=== PATIENT | female | born 1975 | race African-American/Black ===

== ENCOUNTER → 2016-08-25 | Day surgery (SDC) | payer OTHER ==
[~2016-08-25] MED LIST: ACYCLOVIR PO; AMOXICILLIN PO; BACTRIM DS TABL1 TA1 PO; CETIRIZINE HCL10 MG PO; FAT FIGHTER; FLEXERIL10 MG PO; HIBICLENS 4% L120 ML TOP; HYDROCHLOROTHIA25 MG PO; IPRATROPIUM BR2.5 ML NEB; IRON325 ( 65 ) PO; LAMISIL PO; LINZESS145 MCG PO; LORTAB 5/500 TA1 TA1 PO; NORCO 7.5-3251 EACH PO; ORUDIS75 M1 PO; PREDNISONE PO; PREDNISONE10 MG/DOSE PO; PROAIR HFA8.5 GM IN; ZITHROMAX1 G/PKT PO
--- NOTE | ~2016-08-25 | CO ---
Unit #: [id number] #: [id number] Patient: ANSHUL SOLOMON [id number] [address] [place], [place] [address] [id number] I MR#: [id number] NAME: ANSHUL SOLOMON ROOM: 28910 Age: 40 Sex: F Admission Date: 08/25/2016 : 1975 Attending Physician: Brittnee Huntley M.D. Primary Care Physician: [facility]. Consultation Date: 08/25/2016 CONSULTATION REPORT REASON FOR CONSULT Hematemesis. HISTORY OF PRESENT ILLNESS Ms. Solomon is a 40-year-old female. She presented to the emergency room with abdominal pain that started yesterday, along with vomiting. Then, she started with hematemesis. She has never had similar problems in the past. She denies taking NSAIDs. She denies any history of gastric ulcers or previous scopes. Last bowel movement was green. PAST MEDICAL HISTORY Significant for hypertension, thyroid problems, history of asthma and COPD. Also with a history of hernia repair and hysterectomy. HOME MEDICATIONS Medications at home include HCTZ 12.5 mg daily. ALLERGIES None. SOCIAL HISTORY Smoker. Denies any alcohol or drug abuse. REVIEW OF SYSTEMS A complete 10-point review of systems was done, which is unremarkable other than as mentioned above. PHYSICAL EXAMINATION VITAL SIGNS: Vital signs are stable. Temperature 98.4, pulse 79, respirations 18, blood pressure 152/92. HEENT: Pupils equal and reactive. Sclera anicteric. Oral mucosa moist. NECK: No JVD. No lymphadenopathy. CHEST: Clear to auscultation bilaterally. CARDIOVASCULAR: Regular rate and rhythm. No murmurs. ABDOMEN: Mild tenderness, generalized more so in the left flank. EXTREMITIES: Without clubbing, cyanosis, or edema. NEUROLOGIC: Intact. SKIN: Warm and dry. DIAGNOSTIC STUDIES LABS: White count elevated at 20,000. Normal hemoglobin and hematocrit and platelet count. Chemistry is normal. Liver function normal. Renal function is normal. Potassium is 2.9. Unit #: [id number] #: [id number] Patient: ANSHUL SOLOMON IMAGING: CT scan of the abdomen and pelvis shows a ruptured ovarian cyst on the left side. Otherwise, unremarkable. PLAN 1. Patient with hematemesis, recurrent vomiting. Possible Monserrat-Munguia tear versus other. Upper endoscopy was discussed and will be planned urgently. 2. Abdominal pain. So far the evaluation seems to be negative other than ovarian cyst. That could be causing this pain. Treatment per Dr. Huntley. Thank you, Dr. Huntley, for this interesting consult. Will follow along. Dictated by... Christal Purvis/rao TD: 08/25/2016 11:00 JOB #: [id number] CONSULTATION REPORT Page 1 of 1 X Ezequiel Stevens MD X CONSULTATION REPORT
--- NOTE | ~2016-08-25 | DS ---
Unit #: [id number] #: [id number] Patient: ANSHUL SOLOMON [id number] [address] [address] [id number] I MR#: [id number] NAME: ANSHUL SOLOMON ROOM: 87880 Age: Sex: F Admission Date: 08/25/2016 : 1975 Discharge Date: Attending Physician: Brittnee Huntley M.D. Primary Care Physician: [facility]. DISCHARGE SUMMARY ADDENDUM The patient is also being discharged on Lortab 5 mg q.6 p.r.n. pain. Dictated by... Christal Hull/christina TD: 08/25/2016 13:20 JOB #: [id number] DISCHARGE SUMMARY Page 1 of 1 X Brittnee Huntley MD X DISCHARGE SUMMARY
--- NOTE | ~2016-08-25 | CT2 ---
[facility] A Service of [facility] RADIOLOGY TEXT RESULTS PATIENT: ANSHUL SOLOMON LOCATION: [facility] : 73 UNIT #: [id number] AGE: [address]: RICKEY WELDON APRN SEX: F ORDER DR: [id number] [facility] [address] [place], [place] [address] [id number] MR#: [id number] Acc #: [id number] NAME: ANSHUL SOLOMON : 1975 SEX: F STUDY DATE/TIME: 08/25/2016 4:53 UNIT: CEDOF ROOM: 83205 STUDY DESCRIPTION: CT Abd and Pelv W Cont Attending Physician: Brittnee Huntley M.D. Ordering Physician: Rickey Weldon Aprn [facility] This report is preliminary unless electronic signature is present EXAM Abdomen and pelvis CT with contrast 08/25/2016 INDICATION 40-year-old female with abdominal pain since yesterday. Hurts to lay down, vomiting, nausea, COPD, asthma. TECHNIQUE Contrast-enhanced abdomen and pelvis CT was performed. This CT examination was performed with one or more of the following radiation dose reduction techniques: automatic exposure control, adjustment of mA and/or kV according to patient size, and iterative reconstruction. COMPARISON 05/19/2014. FINDINGS CT ABDOMEN: Included lung bases clear. There is only minimal atelectasis. No effusion or pericardial effusion. Aorta demonstrates no aneurysm or dissection. Spleen unremarkable. Adrenal glands and pancreas unremarkable. Gallbladder normal. Liver unremarkable. Kidneys demonstrate no hydronephrosis. No adenopathy. CT PELVIS: Bladder unremarkable. Uterus surgically absent. There is a small amount of free fluid in the pelvis likely physiologic given patient age. There is an oval shaped cyst measuring 4.9 cm in the left adnexa likely an ovarian cyst. Imaging features suggest this may represent a recently ruptured ovarian cyst. This could also account for the patient's pain symptoms. Bowel demonstrates no obstruction or focal inflammatory change. Tiny anterior abdominal wall hernia containing fat only. Appendix normal. Right ovary unremarkable. Inguinal canals unremarkable. [facility] A Service of [facility] RADIOLOGY TEXT RESULTS PATIENT: ANSHUL SOLOMON LOCATION: [facility] : 73 UNIT #: [id number] AGE: [address]: RICKEY WELDON APRN SEX: F ORDER DR: There is no suspicious bone lesion. IMPRESSION 1. There is a nearly 5 cm cyst in the left adnexa likely an ovarian cyst. Imaging features suggest this may have recently ruptured and there is a small amount of free fluid in the pelvis. This could potentially account for patient pain symptoms. 2. Appendix normal. There is no bowel obstruction, drainable fluid collection or focal area of inflammatory change. 3. Surgical absence of the uterus. Dictated by... Henry Hawkins M.D. THIS IS AN ELECTRONICALLY VERIFIED REPORT Henry Hawkins M.D. at 08/28/2016 9:13 AM JAQUELINE/bambi TD: 08/25/2016 09:10 JOB #: [id number] MEDICAL IMAGING REPORT Page 1 of 1 COPY
--- NOTE | ~2016-08-25 | DS ---
Unit #: [id number] #: [id number] Patient: ANSHUL SOLOMON [id number] [address] [address] [id number] I MR#: [id number] NAME: ANSHUL SOLOMON ROOM: 97013 Age: 40 Sex: F Admission Date: 08/25/2016 : 1975 Discharge Date: 08/25/2016 Attending Physician: Brittnee Huntley M.D. Primary Care Physician: [facility]. DISCHARGE SUMMARY SHORT STAY SUMMARY CHIEF COMPLAINT Abdominal pain. HISTORY OF PRESENT ILLNESS The patient is a 40-year-old female admitted because of abdominal pain. According to her, her abdominal pain is mostly bilateral lower quadrants, 8 of 10 on admission, currently 4 of 10. She received morphine. It is associated with nausea, vomiting and brown coffee colored emesis. No chest pain. No shortness of breath. No fever. No chills. No recent infection. She had bowel movement. No blood in the stool. The patient had a CAT scan which showed ovarian cyst rupture. Emergency room physician called the [facility] customer program manager. According to the customer program manager, the patient does not need to be inpatient for that and can be treated as an outpatient. PAST MEDICAL HISTORY 1. History of hypertension. 2. Bronchitis. 3. Irritable bowel syndrome. 4. Thyroid problems. 5. Hysterectomy. 6. Hernia repair. 7. Left ankle surgery. SOCIAL HISTORY The patient smokes a half pack of cigarettes per day. No alcohol. No drugs. FAMILY HISTORY Positive for hypertension. ALLERGIES None. CURRENT HOME MEDICATIONS Ibuprofen over the counter. REVIEW OF SYSTEMS No headache. No visual changes. No weakness, numbness or tingling. No leg swelling or skin rash. Review 12 point systems with her which are negative except as per history of present illness. Unit #: [id number] #: [id number] Patient: ANSHUL SOLOMON PHYSICAL EXAMINATION GENERAL: The patient is a 40-year-old lying in bed, in mild distress secondary to pain. Able to provide history. Alert and oriented times three. VITALS: Temperature 98.4, pulse 79, respiratory rate 18, blood pressure 152/90. HEENT: Pupils equal and reactive to light and accommodation. Dry mucosa present. NECK: Supple. LUNGS: Clear to auscultation. HEART: S1 and S2. Regular rhythm. No murmurs. ABDOMEN: Tender right lower quadrant and left lower quadrant. No guarding. No rigidity. Bowel sounds present. EXTREMITIES: No pedal edema. SKIN: No rashes. NEUROLOGIC: No focal neurological deficits. DIAGNOSTIC STUDIES IMAGING: CAT scan of the abdomen and pelvis shows ovarian cyst ruptured with free fluid in the abdomen. LABORATORY: Sodium 136, potassium 2.9, creatinine 0.9, white blood cell count 20.5, hemoglobin 14.3, platelets 235. Urinalysis shows no infection. ASSESSMENT The patient is a 40-year-old admitted because of vomiting of blood. Hematemesis: Most likely secondary to Motrin. The patient was seen by Dr. Carlson. The patient had an EGD which was normal. He is okay for the patient to be discharged home. The patient will continue with omeprazole 20 mg p.o. daily. Ovarian cyst rupture: The patient was seen by the emergency room physician, who called Dr. Doyle at [facility]. According to Dr. Doyle, the patient does not need inpatient treatment. She can follow as an outpatient. Currently she wants to see her family doctor before going to [facility] MANAGER. If her symptoms persist and the pain gets worse or she runs fever, she needs to come to the emergency room. She understands the instructions. Family is at the bedside. Hypokalemia: The patient received 60 mEq of potassium in the emergency room. I am going to recheck and replace if needed before discharge. DISCHARGE MEDICATIONS Omeprazole 20 mg p.o. daily. DISPOSITION Discharge home. FOLLOWUP 1. Follow up with family physician in one week time. 2. Follow with her customer program manager of choice in one week time. Unit #: [id number] #: [id number] Patient: ANSHUL SOLOMON Dictated by... Christal Hull TD: 08/25/2016 14:02 JOB #: [id number] CC: [facility], [facility]. DISCHARGE SUMMARY Page 1 of 1 X Brittnee Huntley MD X DISCHARGE SUMMARY
--- NOTE | ~2016-08-25 | OR ---
Unit #: [id number] #: [id number] Patient: ANSHUL SOLOMON [id number] [address] [address] [id number] I MR#: [id number] NAME: ANSHUL SOLOMON ROOM: 15171 Date of Procedure: 08/25/2016 Admission Date: 08/25/2016 Surgeon: Ezequiel Stevens M.D. : 1975 Attending Physician: Brittnee Huntley M.D. Primary Care Physician: [facility] OPERATIVE REPORT JOB NOTE: CC: PRIMARY CARE PHYSICIAN PROCEDURE PERFORMED Esophagogastroduodenoscopy with biopsies. INDICATIONS FOR PROCEDURE The patient presented with hematemesis and abdominal pain, undergoing evaluation with upper endoscopy. MEDICATIONS Monitored anesthesia. POSTOPERATIVE FINDINGS 1. Normal esophagus. 2. Mild gastritis. 3. Normal duodenum and distal duodenum. PLAN Follow up on pathology. Continue PPI and symptomatic treatment. DESCRIPTION OF PROCEDURE The patient was explained of the procedure, risks, and benefits along with risks and benefits of anesthesia. She was brought to the endoscopy room. Propofol anesthesia was given. Bite block was placed. The scope was passed down the mouth into the esophagus, stomach, duodenum, and distal duodenum. Findings as described. Biopsies taken. Gently, I pulled it out of the patient's mouth. She tolerated it well. Dictated by... Christal Purvis/michael TD: 08/26/2016 01:48 JOB #: [id number] Unit #: [id number] #: [id number] Patient: ANSHUL SOLOMON OPERATIVE REPORT Page 1 of 1 X Ezequiel Stevens MD X PROCEDURE OPERATIVE NOTE
[2016-08-25 03:59] LABS: BASOPHIL# 0.1 X10e3 (0-0.3); BASOPHIL% 0.5 % (0-2.5); DIFF IND YES; EOSINOPHIL# 0.2 X10e3 (0-0.7); EOSINOPHIL% 0.8 % (0.0-7.0); HEMATOCRIT 41.5 % (35.0-45.0); HEMOGLOBIN 14.3 gm/dL (12.0-16.0); LYMPHOCYTE# 2.2 X10e3 (1.0-3.5); LYMPHOCYTE% 10.7 % (17.0-45.0); MEAN CELL VOLUME 87.3 FL (83-96); MEAN CORPUSCULAR HEMOGLOBIN 30.1 PG (28-34); MEAN CORPUSCULAR HGB CONC 34.4 g/dL (30-36); MEAN PLATELET VOLUME 9.2 FL (6.5-11.5); MONOCYTE# 1.2 X10e3 (0-1.0); MONOCYTE% 5.9 % (3.0-12.0); NEUTROPHIL# 16.9 X10e3 (1.5-7.1); NEUTROPHIL% 82.1 % (40-75); PLATELET COUNT 235 X10e3 (140-420); RED BLOOD COUNT 4.76 X10e (3.90-5.30); RED CELL DISTRIBUTION WIDTH 13.2 % (11.0-15.5); WHITE BLOOD COUNT 20.5 X10e3 (4.0-10.5)
[2016-08-25 04:23] LABS: ALBUMIN SERUM 3.8 g/dL (3.5-5.0); BILIRUBIN, DIRECT 0.1 mg/dL (0.0-0.2); BILIRUBIN,INDIRECT 0.4 mg/dL (0.0-0.9); BILIRUBIN,TOTAL 0.5 mg/dL (0.2-2.0); BUN/CREATININE RATIO 17.77; CALCIUM SERUM 8.6 mg/dL (8.4-10.2); CREATININE SERUM 0.9 mg/dL (0.6-1.4); GLOM FILT RATE Estimated 92.1 mL/min (>60); PROTEIN TOTAL SERUM 7.5 g/dL (6.0-8.3)
[2016-08-25 04:25] LABS: POTASSIUM 2.9 mmol/L (3.5-5.1)
[2016-08-25 04:38] LABS: PLATELET ESTIMATE NORMAL (NORMAL); SMUDGE CELLS 9 /100
[2016-08-25 06:18] LABS: URINE APPEARANCE CLEAR; URINE BILIRUBIN NEG (NEG); URINE BLOOD NEG (NEG); URINE COLOR YELLOW; URINE GLUCOSE NEG (NEG); URINE KETONE NEG (NEG); URINE LEUKOCYTE ESTERASE NEG (NEG); URINE NITRATE NEG (NEG); URINE PROTEIN NEG (NEG); URINE SPECIFIC GRAVITY 1.024 (1.003-1.035)
[2016-08-25 06:45] LABS: CULTURE INDICATED? NO
== END | disposition home or self-care (01) ==
LOC: CED 04:07 → CSUR 09:47
PROVIDERS: Nurse Practitioner Family
DX: K92.0 Hematemesis (principal); K29.50 Unspecified chronic gastritis without bleeding; N83.209 Unspecified ovarian cyst, unspecified side; E87.6 Hypokalemia; D72.829 Elevated white blood cell count, unspecified; I10 Essential (primary) hypertension; J45.909 Unspecified asthma, uncomplicated; J44.9 Chronic obstructive pulmonary disease, unspecified; F17.210 Nicotine dependence, cigarettes, uncomplicated; Z82.49 Family history of ischemic heart disease and other diseases of the circulatory system; Z90.710 Acquired absence of both cervix and uterus
CPT/HCPCS: 36415; 74177; 80048; 80076; 81003; 82150; 83690; 84132; 85025; 88305; 88312; 96361; 96365; 96374; 96375; 99285; C9113; J2270; Q9967